=== PATIENT | female | born 1975 | race Caucasian/White ===

== ENCOUNTER → 2017-06-18 | Outpatient (CLI) | payer BC ==
[~2017-06-18] MED LIST: CELEXA10 MG PO; LOMOTIL 0.025 M1 TAB PO; MAGNESIUM CITRA1 BOT PO; MEDROL 4MG. DOSE4 MG PO; PREDNISONE 10MG10 MG PO; PREVACID 30MG C30 M1 PO; VIVELLE-DO0.1 MG/24 TD
[2017-06-18 09:06] LABS: LYMPH # 2.5 K/mm3 (0.7-4.5); LYMPH % 51.1 % (10-50.0)
[2017-06-18 10:08] LABS: BUN 28 mg/dL (7-18); FREE THYROXIN INDEX 7.2 ug/dl (5.93-13.13)
[2017-06-18 10:10] LABS: GFR (ESTIMATED) 45 ML/MIN (59-)
[2017-06-18 12:53] LABS: NEUTROPHILS 42 % (42-76)
== END ==
LOC: LAB 08:39
PROVIDERS: Nurse Practitioner Obstetrics & Gynecology
DX: Z01.419 Encounter for gynecological examination (general) (routine) without abnormal findings (principal); R53.82 Chronic fatigue, unspecified